=== PATIENT | female | born 1970 | race Caucasian/White ===

== ENCOUNTER 2021-02-11 12:25 | Outpatient (CLI) | payer OTHER | END 2021-02-11 23:59 | disposition home or self-care (01) | LOC: LAB.N 12:25 | PROVIDERS: ATTEND Nurse Practitioner | DX: R05.3 Chronic cough (principal); Z20.822 Contact with and (suspected) exposure to COVID-19 ==

== ENCOUNTER 2022-09-01 21:03 | Outpatient (CLI) | payer OTHER ==
--- NOTE | 2022-09-02 03:22 | Ultrasound Report ---
PROCEDURE: Pelvic w/Transvaginal INDICATIONS: ABN PERIMENOPAUSAL BLEEDING TECHNIQUE: Real-time scanning was performed of the pelvic organs, with image documentation. Additional endovagi nal scanning was necessary due to incomplete visualization of the adnexal and endometrial structures by transabdominal scanning. COMPARISON: None. FINDINGS: Uterus: Uterus is anteverted and measures 10.0 x 5.7 x 6.0 cm. The endometrium measures up to 1 cm i n thickness. Ovaries: The right ovary was not able to be visualized. The left ovary measures 3.0 x 1.0 x 2.6 cm c m, with a calculated ovarian volume of 7.9 cc. No definite adnexal masses. Other: No pathologic free abdominal or pelvic fluid. IMPRESSION: 1. Abnormal thickening of the endometrium without internal vascularity. However, given patient's hist ory of perimenopausal bleeding, consider further evaluation with hysteroscopy or MRI. Reviewed by: Jem Guajardo MD on 09/02/2022 3:20 AM PDT Approved by: Jem Guajardo MD on 09/02/2022 3:20 AM PDT Station ID: [id number]
== END 2022-09-01 21:04 | disposition home or self-care (01) ==
LOC: DI 21:03
PROVIDERS: ATTEND Obstetrics & Gynecology
DX: R93.89 Abnormal findings on diagnostic imaging of other specified body structures (principal); N92.4 Excessive bleeding in the premenopausal period

== ENCOUNTER 2023-07-20 12:45 | Outpatient (CLI) | payer OTHER ==
--- NOTE | 2023-07-20 17:04 | XRAY Report ---
PROCEDURE: Chest 2V INDICATIONS: ACUTE COUGH TECHNIQUE: 2 views of the chest were acquired. COMPARISON: None. FINDINGS: Surgical changes and devices: None. Lungs and pleura: No pleural effusions or pneumothorax. Lungs are clear. Mediastinum: Mediastinal contours appear normal. Heart size is normal. Bones and chest wall: No suspicious bony lesions. Overlying soft tissues appear unremarkable. IMPRESSION: No acute cardiopulmonary process. Reviewed by: Hussein Choudhury MD on 07/20/2023 5:02 PM PDT Approved by: Hussein Choudhury MD on 07/20/2023 5:02 PM PDT Station ID: [id number]
== END 2023-07-20 13:00 | disposition home or self-care (01) ==
LOC: DI.N 12:45
PROVIDERS: ATTEND Physician Assistant Medical
DX: R05.1 Acute cough (principal)

== ENCOUNTER 2023-09-10 08:00 | Outpatient (CLI) | payer OTHER | END 2023-09-10 23:59 | disposition home or self-care (01) | LOC: LAB.N 08:00 | PROVIDERS: ATTEND Physician Assistant Medical | DX: R31.9 Hematuria, unspecified (principal) | CPT/HCPCS: 87077; 87086; 87181 ==